=== PATIENT | female | born 1970 | race Caucasian/White ===

== ENCOUNTER → 2022-07-24 11:00 | Outpatient (CLI) | payer MEDICAID, SELFPAY ==
[2022-07-24 14:05] LABS: Alanine Aminotransferase 21 U/L (12-78); Albumin Level 4.4 g/dl (3.5-5.0); Albumin/Globulin Ratio 1.7 (1.1-1.8); Alkaline Phosphatase 100 U/L (38-126); Aspartate Amino Transferase 25 U/L (14-36); Bilirubin,Total 0.5 mg/dl (0.2-1.3); Blood Urea Nitrogen 18 mg/dl (7-17); Calcium 9.5 mg/dl (8.4-10.2); Carbon Dioxide 26 mmol/L (22.0-30.0); Chloride 107 mmol/L (98-107); Cholesterol 183 mg/dl (140-200); Estimated Glomerular Filt Rate 105 ml/min (>60); GFR (African American) 128 ML/MIN (>60); Globulin 2.6 g/dL (1.3-3.2); Glucose 108 mg/dl (74-100); Triglycerides 91 mg/dl (30-150); VLDL Cholesterol 18 mg/dL (0-40)
[2022-07-24 14:07] LABS: Anion Gap 11.4 mEq/L (5-15); Chol/HDL Ratio 2.7 (1-3.5); HDL Cholesterol 67 mg/dl (40-60); Potassium 4.4 mmoL/L (3.5-5.1); Sodium 140 mmol/L (136-145)
[2022-07-24 14:14] LABS: Basophils # 0.1 K/mm3 (0-0.2); Basophils % 0.8 % (0.1-2.0); Eosinophils # 0.1 K/mm3 (0.0-0.4); Eosinophils % 1.2 % (0.1-12.0); Hemoglobin 14.9 g/dL (12.2-16.2); Lymphocytes # 1.9 K/mm3 (0.7-4.5); Lymphocytes % 23.7 % (10-50); Mean Corpuscular HGB Conc 31.8 g/dL (31.8-35.4); Mean Corpuscular Volume 91.3 fl (81-99); Mean Platelet Volume 8.2 fl (7.4-10.4); Monocytes # 0.4 K/mm3 (0.1-1.0); Monocytes % 5.1 % (1.7-9.3); Neutrophils # 5.7 K/mm3 (1.8-7.8); Neutrophils % 69.3 % (37.0-80.0); Platelet Count 428 K/mm3 (142-424); Red Blood Count 5.14 M/mm3 (4.20-5.40); Red Cell Distribution Width 13.2 % (11.5-17.5); White Blood Count 8.2 K/mm3 (4.8-10.8)
[2022-07-24 14:23] LABS: Free T4 (Free Thyroxine) 1.11 ng/dl (0.78-2.19)
[2022-07-24 14:31] LABS: 25-OH Vitamin D, Total < 12.8 ng/mL (30-100)
[2022-07-24 14:36] LABS: Thyroid Stimulating Hormone 1.95 uIU/mL (0.465-4.68)
== END ==
PROVIDERS: PCP Emergency Medicine; Visit Provider Emergency Medicine
DX: I10 Essential (primary) hypertension (principal); E55.9 Vitamin D deficiency, unspecified
CPT/HCPCS: 80053; 80061; 82306; 84439; 84443; 85025

== ENCOUNTER → 2022-08-20 10:50 | Outpatient (CLI) | payer MEDICAID, SELFPAY ==
[2022-08-20 16:11] LABS: Barbiturates Screen,Urine Negative ng/ml (<200)
[2022-08-20 16:12] LABS: Benzodiazepines Screen,Urine Negative ng/ml (<200)
[2022-08-20 16:13] LABS: Cannabinoid Screen,Urine Negative ng/ml (<50)
[2022-08-20 16:15] LABS: Phencyclidine Screen,Urine Negative ng/ml (<25)
[2022-08-20 16:30] LABS: Methadone Screen,Urine Negative ng/ml (<300)
[2022-08-20 16:33] LABS: Cocaine Screen,Urine Negative ng/ml (<300)
[2022-08-20 16:34] LABS: Opiate Screen,Urine Positive ng/ml (<300)
[2022-08-22 18:47] LABS: Amphetamine/Metha Screen,Urine Negative ng/ml (<1000)
== END ==
PROVIDERS: PCP Emergency Medicine; Visit Provider Emergency Medicine
DX: Z79.899 Other long term (current) drug therapy (principal)
CPT/HCPCS: 80305

== ENCOUNTER → 2022-10-16 10:50 | Outpatient (CLI) | payer MEDICAID, SELFPAY ==
[2022-10-16 14:19] LABS: Amphetamine/Metha Screen,Urine Positive ng/ml (<1000); Barbiturates Screen,Urine Negative ng/ml (<200)
[2022-10-16 14:22] LABS: Benzodiazepines Screen,Urine Negative ng/ml (<200)
[2022-10-16 14:23] LABS: Cannabinoid Screen,Urine Negative ng/ml (<50); Cocaine Screen,Urine Negative ng/ml (<300)
[2022-10-16 14:24] LABS: Methadone Screen,Urine Negative ng/ml (<300); Opiate Screen,Urine Negative ng/ml (<300)
[2022-10-16 14:25] LABS: Phencyclidine Screen,Urine Negative ng/ml (<25)
== END ==
PROVIDERS: PCP Emergency Medicine; Visit Provider Emergency Medicine
DX: M54.12 Radiculopathy, cervical region (principal)
CPT/HCPCS: 80305

== ENCOUNTER → 2022-11-15 20:15 | Outpatient (CLI) | payer MEDICAID, SELFPAY ==
[2022-11-15 21:09] LABS: Amphetamine/Metha Screen,Urine Positive ng/ml (<1000)
[2022-11-15 21:11] LABS: Cannabinoid Screen,Urine Negative ng/ml (<50)
[2022-11-15 21:12] LABS: Barbiturates Screen,Urine Negative ng/ml (<200); Benzodiazepines Screen,Urine Negative ng/ml (<200)
[2022-11-15 21:13] LABS: Cocaine Screen,Urine Negative ng/ml (<300)
[2022-11-15 21:14] LABS: Methadone Screen,Urine Negative ng/ml (<300); Opiate Screen,Urine Negative ng/ml (<300)
[2022-11-15 21:16] LABS: Phencyclidine Screen,Urine Negative ng/ml (<25)
== END ==
PROVIDERS: PCP Family Medicine; Visit Provider Family Medicine
DX: Z79.899 Other long term (current) drug therapy (principal)
CPT/HCPCS: 80305

== ENCOUNTER → 2022-11-23 13:24 | Outpatient (CLI) | payer MEDICAID, SELFPAY ==
[2022-11-23 15:26] LABS: Amphetamine/Metha Screen,Urine Negative ng/ml (<1000); Barbiturates Screen,Urine Negative ng/ml (<200)
[2022-11-23 15:27] LABS: Benzodiazepines Screen,Urine Negative ng/ml (<200); Cannabinoid Screen,Urine Negative ng/ml (<50)
[2022-11-23 15:28] LABS: Cocaine Screen,Urine Negative ng/ml (<300)
[2022-11-23 15:29] LABS: Methadone Screen,Urine Negative ng/ml (<300); Opiate Screen,Urine Negative ng/ml (<300)
[2022-11-23 15:30] LABS: Phencyclidine Screen,Urine Negative ng/ml (<25)
== END ==
PROVIDERS: PCP Emergency Medicine; Visit Provider Emergency Medicine
DX: M54.12 Radiculopathy, cervical region (principal)
CPT/HCPCS: 80305

== ENCOUNTER → 2022-12-21 13:41 | Outpatient (CLI) | payer MEDICAID, SELFPAY ==
[2022-12-21 13:49] LABS: Benzodiazepines Screen,Urine Negative ng/ml (<200)
[2022-12-21 13:50] LABS: Amphetamine/Metha Screen,Urine Negative ng/ml (<1000)
[2022-12-21 13:51] LABS: Barbiturates Screen,Urine Negative ng/ml (<200); Cannabinoid Screen,Urine Negative ng/ml (<50)
[2022-12-21 13:52] LABS: Cocaine Screen,Urine Negative ng/ml (<300); Methadone Screen,Urine Negative ng/ml (<300)
[2022-12-21 13:53] LABS: Opiate Screen,Urine Negative ng/ml (<300)
[2022-12-21 13:54] LABS: Phencyclidine Screen,Urine Negative ng/ml (<25)
== END ==
PROVIDERS: PCP Emergency Medicine; Visit Provider Emergency Medicine
DX: M54.12 Radiculopathy, cervical region (principal)
CPT/HCPCS: 80305

== ENCOUNTER → 2023-02-18 23:10 | Outpatient (CLI) | payer MEDICAID, SELFPAY ==
[2023-02-18 20:04] LABS: Amphetamine/Metha Screen,Urine Negative ng/ml (<1000); Barbiturates Screen,Urine Negative ng/ml (<200); Benzodiazepines Screen,Urine Negative ng/ml (<200); Cocaine Screen,Urine Negative ng/ml (<300); Methadone Screen,Urine Negative ng/ml (<300); Opiate Screen,Urine Positive ng/ml (<300); Phencyclidine Screen,Urine Negative ng/ml (<25)
[2023-02-18 20:17] LABS: Cannabinoid Screen,Urine Negative ng/ml (<50)
== END ==
PROVIDERS: PCP Emergency Medicine; Visit Provider Emergency Medicine
DX: F41.9 Anxiety disorder, unspecified (principal)
CPT/HCPCS: 80305

== ENCOUNTER → 2023-03-05 07:37 | Outpatient (CLI) | payer MEDICAID, SELFPAY ==
--- NOTE | 2023-03-05 07:38 | US_ITS ---
FINAL REPORT CLINICAL HISTORY: abdominal pain COMPARISON: None FINDINGS: Sonographic images of the right upper quadrant were obtained. The pancreas is partially obscured. There is fatty infiltration of the liver. Multiple gallstones are present in the gallbladder. The gallbladder wall is slightly thickened at 4.8 mm. There is no evidence of biliary ductal dilatation.The common duct measures 6 mm, and no evidence of choledocholithiasis is seen. Limited images of the right kidney are unremarkable. IMPRESSION: Gallstones present in the gallbladder with slight gallbladder wall thickening and borderline biliary ductal dilatation. No evidence of choledocholithiasis is seen. Fatty infiltration of the liver. Reviewed, Interpreted and Dictated by Hayden Pabon MD Transcribed by Racquel Boston Authenticated and . [facility]
== END ==
PROVIDERS: PCP Emergency Medicine; Visit Provider Emergency Medicine
DX: R10.9 Unspecified abdominal pain (principal)
CPT/HCPCS: 76705

== ENCOUNTER → 2023-04-10 12:18 | Outpatient (CLI) | payer MEDICAID, SELFPAY | PROVIDERS: PCP Emergency Medicine; Visit Provider Specialist | DX: G47.33 Obstructive sleep apnea (adult) (pediatric) (principal) | CPT/HCPCS: G0399 ==

== ENCOUNTER → 2023-04-12 09:33 | Outpatient (CLI) | payer MEDICAID, SELFPAY | PROVIDERS: PCP Emergency Medicine; Visit Provider Specialist | DX: G93.40 Encephalopathy, unspecified (principal); R41.3 Other amnesia; R41.89 Other symptoms and signs involving cognitive functions and awareness | CPT/HCPCS: 95819 ==

== ENCOUNTER → 2023-04-18 10:54 | Outpatient (CLI) | payer MEDICAID, SELFPAY ==
--- NOTE | 2023-04-18 11:04 | ECG_ITS ---
APPROVED REPORT Exam: Resting ECG HR:82 bpm ECG Measurements Heart Rate 82 AXES NJ 121 P 51 QRSd 86 QRS 64 QT 356 T 38 QTc 394 Conclusion SINUS RHYTHM NORMAL ECG UNCONFIRMED REPORT Electronically signed by : Casey Acevedo MD 04/20/2023 08:01:58
[2023-04-18 11:57] LABS: Basophils % 0.6 % (0.1-2.0); Eosinophils # 0.1 K/mm3 (0.0-0.4); Hematocrit 46.1 % (37.0-47.0); Hemoglobin 14.4 g/dL (12.2-16.2); Lymphocytes # 1.7 K/mm3 (0.7-4.5); Lymphocytes % 36.8 % (10-50); Mean Corpuscular HGB Conc 31.3 g/dL (31.8-35.4); Mean Corpuscular Volume 92.6 fl (81-99); Mean Platelet Volume 7.9 fl (7.4-10.4); Monocytes # 0.2 K/mm3 (0.1-1.0); Monocytes % 5.3 % (1.7-9.3); Neutrophils # 2.5 K/mm3 (1.8-7.8); Neutrophils % 55.4 % (37.0-80.0); Platelet Count 212 K/mm3 (142-424); Red Blood Count 4.97 M/mm3 (4.20-5.40); Red Cell Distribution Width 13.1 % (11.5-17.5); White Blood Count 4.5 K/mm3 (4.8-10.8)
[2023-04-18 12:27] LABS: Alanine Aminotransferase 16 U/L (12-78); Albumin Level 3.9 g/dl (3.5-5.0); Albumin/Globulin Ratio 1.7 (1.1-1.8); Alkaline Phosphatase 69 U/L (38-126); Anion Gap 8.4 mEq/L (5-15); Aspartate Amino Transferase 20 U/L (14-36); Bilirubin,Total 0.3 mg/dl (0.2-1.3); Blood Urea Nitrogen 14 mg/dl (7-17); Calcium 9.1 mg/dl (8.4-10.2); Carbon Dioxide 28 mmol/L (22.0-30.0); Chloride 108 mmol/L (98-107); Estimated Glomerular Filt Rate 130 ml/min (>60); GFR (African American) 157 ML/MIN (>60); Globulin 2.3 g/dL (1.3-3.2); Glucose 92 mg/dl (74-100); Potassium 4.4 mmoL/L (3.5-5.1); Sodium 140 mmol/L (136-145); Total Protein,Serum 6.2 g/dl (6.3-8.2)
[2023-04-18 12:56] LABS: Urine Pregnancy, HCG Qual. Negative (Negative)
== END ==
PROVIDERS: PCP Emergency Medicine; Visit Provider Surgery
DX: R10.9 Unspecified abdominal pain (principal); Z01.818 Encounter for other preprocedural examination
CPT/HCPCS: 36415; 80053; 81025; 85025; 93005

== ENCOUNTER → 2023-04-22 10:50 | Outpatient (CLI) | payer MEDICAID, SELFPAY ==
[2023-04-22 12:26] LABS: Erythrocyte Sedimentation Rate 14 mm/hr (0-30)
[2023-04-22 12:53] LABS: Chloride 105 mmol/L (98-107); Potassium 4.5 mmoL/L (3.5-5.1); Sodium 137 mmol/L (136-145)
[2023-04-22 12:55] LABS: Alanine Aminotransferase 18 U/L (12-78); Aspartate Amino Transferase 20 U/L (14-36); Blood Urea Nitrogen 19 mg/dl (7-17); Estimated Glomerular Filt Rate 88 ml/min (>60); GFR (African American) 107 ML/MIN (>60)
[2023-04-22 12:56] LABS: Albumin Level 3.8 g/dl (3.5-5.0); Albumin/Globulin Ratio 1.7 (1.1-1.8); Alkaline Phosphatase 73 U/L (38-126); Anion Gap 7.5 mEq/L (5-15); Calcium 8.8 mg/dl (8.4-10.2); Carbon Dioxide 29 mmol/L (22.0-30.0); Globulin 2.3 g/dL (1.3-3.2); Glucose 91 mg/dl (74-100); Total Protein,Serum 6.1 g/dl (6.3-8.2)
[2023-04-22 12:57] LABS: Bilirubin,Total 0.1 mg/dl (0.2-1.3)
[2023-04-22 17:56] LABS: Vitamin B12 297 pg/mL (239-931)
[2023-04-22 18:02] LABS: Folate 9.94 ng/mL
[2023-04-23 10:13] LABS: Rapid Plasma Reagin Ab Titer Non Reactive titer (NonRea<1:1)
[2023-04-23 14:11] LABS: Anti-Centromere B Antibodies <0.2 AI (0.0-0.9); Anti-DNA (DS) Ab Qn <1 IU/mL (0-9); Anti-Jo-1 <0.2 AI (0.0-0.9); Antichromatin Antibodies <0.2 AI (0.0-0.9); Antiscleroderma-70 Antibodies 1.1 AI (0.0-0.9); RNP Antibodies <0.2 AI (0.0-0.9); Sjogren's Anti-SS-A <0.2 AI (0.0-0.9); Sjogren's Anti-SS-B <0.2 AI (0.0-0.9)
[2023-04-24 15:01] LABS: C-Reactive Protein 2.2 mg/L (0-4)
[2023-04-25 08:27] LABS: Anti-Centromere B Abs Charge YES; Anti-DNA (DS) Ab Charge YES; Anti-Jo-1 Charge YES; Antichromatin Abs Charge YES; Antinuclear Antibodies (ANA) POSITIVE; Antiscleroderma-70 Abs Charge YES; RNP Antibodies Charge YES; Sjogren's Anti-SS-A Ab Charge YES; Sjogren's Anti-SS-B Ab Charge YES; Smith Antibodies Charge YES
== END ==
PROVIDERS: PCP Emergency Medicine; Visit Provider Specialist
DX: G93.40 Encephalopathy, unspecified (principal); R41.3 Other amnesia; R41.89 Other symptoms and signs involving cognitive functions and awareness
CPT/HCPCS: 36415; 80053; 82607; 82746; 85651; 86038; 86140; 86225; 86235; 86593

== ENCOUNTER 2023-04-25 06:00 | Day surgery (SDC) | payer MEDICAID, SELFPAY ==
[2023-04-24 13:17] VITALS: BMI 33.2
[2023-04-25] VITALS (12 sets, daily range): BP systolic 104–150; BP diastolic 43–100; PULSE 89–103; RESP 15–18; TEMP 36.3–43; O2SAT 93–99
--- NOTE | 2023-04-25 08:28 | P.OP_ITS ---
Date of procedure: 04/25/23 Pre-op Diagnosis:: Chronic calculus cholecystitis Post-op Diagnosis:: Same Procedure performed:: Laparoscopic cholecystectomy Surgeon:: Anam Go MD AUTO DAMAGE TRAINEE:: Juanjo Oleary Anesthesia: DARIEL Estimated blood loss (mL): 15 Operative findings:: Fairly severe infundibular thickening Operative note:: After informed consent was obtained, the patient was taken to the operating room and placed in the supine position. General anesthesia was induced and the abdomen was prepped and draped in a sterile fashion. After infiltration with local anesthetic an infraumbilical incision was made. A Veress needle was placed in position. The abdomen was insufflated. A 5 mm optical trocar was placed in position. Under direct visualization, a 12 mm trocar was placed in the subxiphoid position and 2 additional 5 mm trocars were placed in the right upper quadrant. The gallbladder was elevated up and over the liver margin. The tissue around the cystic duct was carefully dissected. 3 clips were placed proximally and the duct was transected with harmonic jose. Harmonic jose were then utilized to dissect the gallbladder away from the liver margin with careful attention to the control of the cystic artery. The gallbladder was placed in a retrieval bag and removed through the subxiphoid trocar site. The right upper quadrant was thoroughly irrigated. No active bleeding or bile leak was noted. Fascia at the subxiphoid trocar site was reapproximated utilizing the NeoClose device. The remaining trocars were removed. All wounds were irrigated and skin was closed with 4-0 Monocryl in a mattress fashion to facilitate hemostasis. The patient's anesthetic agents were reversed and extubation was completed prior to transfer to recovery in stable condition. Condition: stable Disposition: PACU Specimens:: Gallbladder and contents Complications:: No immediate
--- NOTE | 2023-04-25 08:35 | EXP.ANES.CKL ---
[facility] Disclaimer: The information contained in this section may have been updated after the patient was seen, as this information can be updated by other users. Medical History Accessory carpal bone of both wrists Anxiety Hypertension Surgical History History of carpal tunnel release History of hernia repair Family History Other Cancer Social History Smoking Status: Current every day smoker alcohol intake: never substance use type: former substance user and marijuana current occupational status: unemployed Travel in the last 8 weeks: None household members: significant other housing: other marital status: [facility] Anesthesia Checklist Patient Identification Patient Identification: Arm Band Structural Data Admitted From: Home Planned Operative Procedure/s: Laparoscopic Cholecystectomy Consent for Planned Operative Procedure(s) Verified: Yes Verified Documents: Surgical Consent and History and Physical NPO Status Verified Time NPO: 00:00 Additional verifications Anesthesia Reactions: No Hx Blood Transfusions: No Blood Transfusion Reaction: No Airway Assessment Mallampati Score:: Class II C-Spine Mobility Assessed: Yes TMJ Mobility Assessed: Yes Dentition: Edentulous Neurological Assessment Level of Consciousness: Awake and Alert Anesthesia Plan Anesthesia Risk discussed: Yes Anesthesia Plan: Verified ASA Class: II Anesthesia Type: General
--- NOTE | 2023-04-25 08:36 | EXP.ANES.I ---
[facility] Anesthesia Record Part I Anesthesia Record I Intake, IV Amount: 1,200 Hydration: Adequate Estimated blood loss (mL): 10 Urine output (mL): 0 Blood Products used (#): none Blood Pressure: 148/91 SaO2: 95 Pulse Rate: 98 Airway Patency: Patent Respiratory Rate: 16 Temperature: 97.8 F Patient is:: Drowsy and Stable Stable to PACU at:: 08:30
--- NOTE | 2023-04-25 10:54 | EXP.ANES.II ---
[facility] Anesthesia Record Part II Anesthesia Record Part II Discharge Time: 09:00 Destination: Surgical Day Care (OP Surgery) PACU nurse assessment reviewed?: Yes Patient Condition:: Good Anesthesia Complications:: None Swallowing reflex intact?: Yes Airway Patency: Patent Cyanosis?: No Blood Pressure: 104/43 SaO2: 96 Respiratory Rate: 16 Pulse Rate: 89 Temperature: 97.8 F Mental Status: Alert & Oriented Pain level:: 5 Nausea and/or vomitting:: None Intake, IV Amount: 0 Hydration: Adequate
== END 2023-04-25 09:52 | disposition home or self-care (01) ==
PROVIDERS: PCP Emergency Medicine; Visit Provider Surgery
PROC: 0FT44ZZ Resection of Gallbladder, Percutaneous Endoscopic Approach (ICD-10-PCS; CPT 47562; principal; 2023-04-25 07:30)
DX: K80.10 Calculus of gallbladder with chronic cholecystitis without obstruction (principal)
CPT/HCPCS: 47562; 96374; J2405

== ENCOUNTER 2023-04-26 11:58 | Emergency (ER) | payer MEDICAID, SELFPAY ==
[2023-04-26] VITALS (7 sets, daily range): BP systolic 151–193; BP diastolic 85–159; PULSE 72–95; RESP 16–18; TEMP 36.5–36.7; O2SAT 95–100; BMI 34.4
--- NOTE | 2023-04-26 12:35 | CT_ITS ---
FINAL REPORT CLINICAL HISTORY: 1d post op lap/kulwant sudden R abd pain COMPARISON: None FINDINGS: CT OF THE ABDOMEN AND PELVIS WITH CONTRAST Axial CT images of the abdomen and pelvis were obtained after the administration of IV contrast. Coronal and sagittal reformatted images were also obtained and reviewed. This study was performed with techniques to keep radiation doses as low as reasonably achievable (ALARA). Individualized dose reduction techniques using automated exposure control or adjustment of mA and/or kV according to the patient's size were employed. Abdomen: Bibasilar atelectasis is present.. The heart is normal in size. The patient has undergone a recent cholecystectomy. There is mild biliary ductal dilatation noted, as well as a small amount of perihepatic free fluid. There is a small amount of fluid in the gallbladder fossa and adjacent to the medial aspect of the liver. There is a small focus of increased density in the distal common bile duct, and a small distal common bile duct stone cannot be excluded. The spleen is unremarkable. No adrenal mass is present. The pancreas has an unremarkable appearance. The kidneys are normal, without evidence of mass or hydronephrosis. The aorta is normal in caliber. There is no free fluid or adenopathy. No mass or abnormal fluid collection is seen. Pelvis: The appendix is not well-visualized. The urinary bladder is unremarkable. No inflammatory process is seen. There is no evidence of mass or adenopathy. There is no evidence of bowel obstruction. IMPRESSION: Patient is 1 day postop from a cholecystectomy. There is a small amount of fluid in the gallbladder fossa and adjacent to the medial liver that may simply represent postoperative change, or could represent a hematoma or biloma. There is a small amount of perihepatic free fluid noted. Mild biliary ductal dilatation with a questionable small stone in the distal common bile duct. Would recommend either ERCP or MRCP for further evaluation at this time. Reviewed, Interpreted and Dictated by Wilner Hernandez III, MD Transcribed by Racquel Boston Authenticated and [facility]
--- NOTE | 2023-04-26 12:37 | HMH.EDGENADL ---
Discharge Plan Disposition Chief Complaint: Abdominal Pain Prescriptions Prescriptions: No Action bupropion HCl 75 mg tablet 75 mg PO BID Qty: 60 2RF polyethylene glycol 3350 [Miralax] 17 gram/dose powder 17 g PO DAILY PRN (Reason: Constipation) cholecalciferol (vitamin D3) 1,250 mcg (50,000 unit) capsule 1,250 mcg PO WEEKLY Qty: 14 3RF lisinopril 5 mg tablet 5 mg PO DAILY Qty: 90 0RF clonazepam [Klonopin] 0.5 mg tablet 0.5 mg PO DAILY 21 Days Qty: 21 0RF oxycodone 10 mg tablet 10 mg PO QID oxycodone 5 mg tablet 5 mg PO Q6H PRN (Reason: post-op pain) Qty: 13 0RF Referrals Follow up/Referrals: Inocencio Hillman MD [Primary Care Provider] - See instructions Activity Restrictions/Add. Instructions Additional Instructions/Restrictions: No emergent medical condition was identified on your CAT scan there was some normal postoperative fluid collection but more concerning Gama there was possible mild biliary ductal dilatation but all your labs were normal and after discussing the case with our general surgeon we do not feel that an emergent ERCP or MRCP are needed however please keep a close eye on your symptoms if you develop any jaundice as discussed or worsening abdominal pain please return to the emergency department. The last please follow-up with your surgeon as previously instructed. Clinical Impressions Clinical Impression: Acute postoperative abdominal pain Instructions Patient Instructions: DI for Acute Abdominal Pain Discharge ED Provider: Gallo Retana General Adult HPI General Chief complaint: Abdominal Pain Stated complaint: surgery on [facility] 04/25 pain in adm Time Seen by Provider: 04/26/23 12:23 Mode of Arrival: Wheelchair Source of Information: Patient Limitations: No Limitations Description of Symptoms (Recalled from ER Triage Doc. by RN): pt presents with c/o abdominal pain. pt reports having gallbladder taken out yesterday. pain occurred approx 20-30 mins WINDOW GLASS CUTTER OFF. pt did take prescription pain medication given after surgery. History of Present Illness HPI narrative: Patient is a 52-year-old female 1 day status post laparoscopic cholecystectomy performed by Dr. Mack at [facility] presenting with sudden abdominal pain that was severe on the right side of her abdomen about 1 hour prior to arrival. She states that she had a very difficult time relaxing her abdomen and it was much more severe than the postoperative pain she was feeling. She states that since improved a little bit since that time. She denies any fever any shortness of breath any chest pain any abdominal distention or bloating. Related Data Home Medications Medication Instructions Recorded Confirmed polyethylene glycol 3350 17 17 g PO DAILY PRN Constipation 03/13/23 04/26/23 gram/dose oral powder (Miralax) oxycodone 10 mg tablet 10 mg PO QID Pain 04/25/23 04/26/23 Previous Rx's Medication Instructions Recorded cholecalciferol (vitamin D3) 1,250 1,250 mcg PO WEEKLY vitamin d 07/26/22 mcg (50,000 unit) capsule deficiency #14 caps bupropion HCl 75 mg tablet 75 mg PO BID #60 tabs 10/16/22 lisinopril 5 mg tablet 5 mg PO DAILY #90 tabs 04/04/23 clonazepam 0.5 mg tablet (Klonopin) 0.5 mg PO DAILY 3 weeks #21 tabs 04/23/23 oxycodone 5 mg tablet 5 mg PO Q6H PRN post-op pain #13 04/25/23 tabs Allergies Allergy/AdvReac Type Severity Reaction Status Date / Time No Known Allergies Allergy Verified 04/26/23 12:33 [facility] Disclaimer: The information contained in this section may have been updated after the patient was seen, as this information can be updated by other users. Medical History (Updated 04/26/23 @ 12:40 by Gallo Retana MD) Accessory carpal bone of both wrists Anxiety Hypertension Surgical History History of carpal tunnel release History of hernia repair Family History (Reviewed 04/05/23 @ 09:14 by Iva
[2023-04-26 12:44] LABS: Basophils % 0.4 % (0.1-2.0); Chloride 104 mmol/L (98-107); Eosinophils # 0.1 K/mm3 (0.0-0.4); Eosinophils % 1.8 % (0.1-12.0); Hematocrit 39.5 % (37.0-47.0); Hemoglobin 13.5 g/dL (12.2-16.2); Lymphocytes # 2.4 K/mm3 (0.7-4.5); Lymphocytes % 36.6 % (10-50); Mean Corpuscular HGB Conc 34.1 g/dL (31.8-35.4); Mean Corpuscular Hemoglobin 30.9 pg (27.0-31.2); Mean Corpuscular Volume 90.6 fl (81-99); Mean Platelet Volume 7.9 fl (7.4-10.4); Monocytes # 0.4 K/mm3 (0.1-1.0); Monocytes % 6.1 % (1.7-9.3); Neutrophils # 3.6 K/mm3 (1.8-7.8); Neutrophils % 55.1 % (37.0-80.0); Platelet Count 208 K/mm3 (142-424); Red Blood Count 4.36 M/mm3 (4.20-5.40); Red Cell Distribution Width 13.4 % (11.5-17.5); White Blood Count 6.4 K/mm3 (4.8-10.8)
[2023-04-26 12:45] LABS: Potassium 3.3 mmoL/L (3.5-5.1); Sodium 140 mmol/L (136-145)
[2023-04-26 12:47] LABS: Alanine Aminotransferase 58 U/L (12-78); Albumin Level 3.8 g/dl (3.5-5.0); Albumin/Globulin Ratio 1.5 (1.1-1.8); Alkaline Phosphatase 69 U/L (38-126); Anion Gap 10.3 mEq/L (5-15); Aspartate Amino Transferase 49 U/L (14-36); Bilirubin,Total 0.3 mg/dl (0.2-1.3); Blood Urea Nitrogen 15 mg/dl (7-17); Calcium 8.7 mg/dl (8.4-10.2); Carbon Dioxide 29 mmol/L (22.0-30.0); Creatinine Clearance Estimated 175 mL/min (50-200); Estimated Glomerular Filt Rate 105 ml/min (>60); GFR (African American) 128 ML/MIN (>60); Globulin 2.5 g/dL (1.3-3.2); Glucose 101 mg/dl (74-100); Total Protein,Serum 6.3 g/dl (6.3-8.2)
[2023-04-26 12:50] LABS: Lipase < 10 U/L (23-300)
--- NOTE | 2023-04-26 12:54 | PC.NURSE ---
Pt gone to RAD via wheelchair
--- NOTE | 2023-04-26 13:02 | PC.NURSE ---
Pt returned from RAD
--- NOTE | 2023-04-26 14:12 | PC.NURSE ---
Rounded on pt. Requested a drink. Advised we would get her something when her results were back. No other needs voiced.
--- NOTE | 2023-04-26 14:13 | PC.NURSE ---
Dr Huff paged
--- NOTE | 2023-04-26 14:51 | PC.NURSE ---
Dr Refugio tyler, his office advised he was in surgery.
--- NOTE | 2023-04-26 14:58 | PC.NURSE ---
Dr Retana speaking to Dr Huff
== END 2023-04-26 15:07 | disposition home or self-care (01) ==
PROVIDERS: Emergency Provider Student in an Organized Health Care Education/Training Program; PCP Emergency Medicine
DX: G89.18 Other acute postprocedural pain (principal); I10 Essential (primary) hypertension; F41.9 Anxiety disorder, unspecified; F17.210 Nicotine dependence, cigarettes, uncomplicated
CPT/HCPCS: 74177; 80053; 83690; 85025; 96361; 96374; 96375; 99284; J2405; Q9967

== ENCOUNTER 2023-05-07 15:33 | Outpatient (CLI) | payer MEDICAID, SELFPAY ==
[2023-05-07 15:45] VITALS: BP 149/90; PULSE 111; RESP 20; TEMP 36.6; O2SAT 98
[2023-05-07 16:02] VITALS: BP 144/88; PULSE 102; RESP 20; O2SAT 98
== END 2023-05-07 16:09 | disposition home or self-care (01) ==
LOC: INF 15:35
PROVIDERS: PCP Emergency Medicine; Visit Provider Surgery
DX: G89.18 Other acute postprocedural pain (principal)
CPT/HCPCS: 96372

== ENCOUNTER → 2023-05-15 13:29 | Outpatient (CLI) | payer MEDICAID, SELFPAY ==
[2023-05-15 20:45] LABS: Amphetamine/Metha Screen,Urine Negative ng/ml (<1000); Barbiturates Screen,Urine Negative ng/ml (<200)
[2023-05-15 20:46] LABS: Benzodiazepines Screen,Urine Negative ng/ml (<200)
[2023-05-15 20:47] LABS: Cannabinoid Screen,Urine Negative ng/ml (<50); Cocaine Screen,Urine Negative ng/ml (<300)
[2023-05-15 20:48] LABS: Methadone Screen,Urine Negative ng/ml (<300)
[2023-05-15 20:49] LABS: Opiate Screen,Urine Negative ng/ml (<300); Phencyclidine Screen,Urine Negative ng/ml (<25)
== END ==
PROVIDERS: PCP Emergency Medicine; Visit Provider Emergency Medicine
DX: Z79.899 Other long term (current) drug therapy (principal)
CPT/HCPCS: 80305

== ENCOUNTER → 2023-06-18 23:31 | Outpatient (CLI) | payer MEDICAID, SELFPAY ==
[2023-06-18 18:48] LABS: Basophils % 0.5 % (0.1-2.0); Eosinophils # 0.1 K/mm3 (0.0-0.4); Eosinophils % 1.7 % (0.1-12.0); Hematocrit 44.3 % (37.0-47.0); Hemoglobin 14.4 g/dL (12.2-16.2); Lymphocytes # 2.2 K/mm3 (0.7-4.5); Lymphocytes % 38.2 % (10-50); Mean Corpuscular HGB Conc 32.5 g/dL (31.8-35.4); Mean Corpuscular Hemoglobin 30.4 pg (27.0-31.2); Mean Corpuscular Volume 93.6 fl (81-99); Mean Platelet Volume 8.8 fl (7.4-10.4); Monocytes # 0.4 K/mm3 (0.1-1.0); Monocytes % 6.2 % (1.7-9.3); Neutrophils # 3.1 K/mm3 (1.8-7.8); Neutrophils % 53.4 % (37.0-80.0); Platelet Count 272 K/mm3 (142-424); Red Blood Count 4.73 M/mm3 (4.20-5.40); Red Cell Distribution Width 13.8 % (11.5-17.5); White Blood Count 5.8 K/mm3 (4.8-10.8)
[2023-06-18 19:49] LABS: Alanine Aminotransferase 37 U/L (12-78); Albumin Level 4.2 g/dl (3.5-5.0); Albumin/Globulin Ratio 1.7 (1.1-1.8); Alkaline Phosphatase 87 U/L (38-126); Anion Gap 11.4 mEq/L (5-15); Aspartate Amino Transferase 34 U/L (14-36); Bilirubin,Total 0.3 mg/dl (0.2-1.3); Blood Urea Nitrogen 18 mg/dl (7-17); Calcium 9.2 mg/dl (8.4-10.2); Carbon Dioxide 24 mmol/L (22.0-30.0); Chloride 107 mmol/L (98-107); Estimated Glomerular Filt Rate 105 ml/min (>60); GFR (African American) 128 ML/MIN (>60); Globulin 2.5 g/dL (1.3-3.2); Glucose 98 mg/dl (74-100); Potassium 4.4 mmoL/L (3.5-5.1); Sodium 138 mmol/L (136-145); Total Protein,Serum 6.7 g/dl (6.3-8.2)
[2023-06-18 20:06] LABS: Microalbumin/Creatinine Ratio 17.3
[2023-06-18 20:07] LABS: 25-OH Vitamin D, Total 33.5 ng/mL (30-100); Barbiturates Screen,Urine Negative ng/ml (<200)
[2023-06-18 20:08] LABS: Benzodiazepines Screen,Urine Negative ng/ml (<200)
[2023-06-18 20:09] LABS: Amphetamine/Metha Screen,Urine Negative ng/ml (<1000); Cocaine Screen,Urine Negative ng/ml (<300)
[2023-06-18 20:11] LABS: Cannabinoid Screen,Urine Negative ng/ml (<50); Creatinine,Urine Random 73 mg/dL (Not Estab.); Opiate Screen,Urine Negative ng/ml (<300)
[2023-06-18 20:12] LABS: Phencyclidine Screen,Urine Negative ng/ml (<25)
[2023-06-18 20:18] LABS: Methadone Screen,Urine Negative ng/ml (<300)
[2023-06-18 20:21] LABS: Thyroid Stimulating Hormone 2.41 uIU/mL (0.465-4.68)
== END ==
LOC: LAB.DROPOF 23:32
PROVIDERS: PCP Internal Medicine; Visit Provider Internal Medicine
DX: F41.9 Anxiety disorder, unspecified (principal); R53.83 Other fatigue; E66.9 Obesity, unspecified; Z68.34 Body mass index [BMI] 34.0-34.9, adult; Z79.899 Other long term (current) drug therapy
CPT/HCPCS: 80053; 80305; 82043; 82306; 82570; 84443; 85025

== ENCOUNTER → 2023-06-19 11:54 | Outpatient (CLI) | payer MEDICAID, SELFPAY ==
--- NOTE | 2023-06-19 12:01 | XR_ITS ---
FINAL REPORT CLINICAL HISTORY: pain with movement FINDINGS: Left shoulder Three views were obtained. There is no acute fracture or dislocation. There is mild AC joint degenerative change. No soft tissue abnormality is identified. IMPRESSION: Mild degenerative changes. Reviewed, Interpreted and Dictated by Wilner Hernandez III, MD Transcribed by Radha Hadley Authenticated and [facility]
--- NOTE | 2023-06-19 12:01 | XR_ITS ---
FINAL REPORT CLINICAL HISTORY: pain FINDINGS: THORACIC SPINE Two views demonstrate no acute fracture. There are moderate degenerative changes with osteophytes. There is no malalignment. IMPRESSION: Moderate degenerative changes. Reviewed, Interpreted and Dictated by Wilner Hernandez III, MD Transcribed by Radha Hadley Authenticated and [facility]
--- NOTE | 2023-06-19 12:01 | XR_ITS ---
FINAL REPORT CLINICAL HISTORY: radicular pain COMPARISON: 06/19/2023 FINDINGS: 3 views of the lumbar spine were obtained. There is no evidence of fracture or dislocation. The vertebral alignment is normal. There is moderate anterior osteophyte formation at L2-3 and L3-4. No paraspinous soft tissue abnormalities identified. IMPRESSION: No acute bony abnormality. Reviewed, Interpreted and Dictated by Hayden Pabon MD Transcribed by Racquel Boston Authenticated and [facility]
== END ==
PROVIDERS: PCP Internal Medicine; Visit Provider Internal Medicine
DX: M54.12 Radiculopathy, cervical region (principal); M25.512 Pain in left shoulder; M54.6 Pain in thoracic spine; M54.50 Low back pain, unspecified
CPT/HCPCS: 72070; 72100; 73030

== ENCOUNTER 2023-07-16 13:49 | Outpatient (CLI) | payer MEDICAID, SELFPAY ==
[2023-07-16 17:36] LABS: Amphetamine/Metha Screen,Urine Negative ng/ml (<1000); Barbiturates Screen,Urine Negative ng/ml (<200); Benzodiazepines Screen,Urine Negative ng/ml (<200); Cannabinoid Screen,Urine Negative ng/ml (<50); Cocaine Screen,Urine Negative ng/ml (<300); Methadone Screen,Urine Negative ng/ml (<300); Opiate Screen,Urine Negative ng/ml (<300); Phencyclidine Screen,Urine Negative ng/ml (<25)
[2023-07-23 06:04] LABS: Alprazolam Negative (Cutoff=100); Benzodiazepines Negative ng/mL (Cutoff=100); Clonazepam Negative (Cutoff=100); Flurazepam Negative (Cutoff=100); Lorazepam Negative (Cutoff=100); Midazolam Negative (Cutoff=100); Opiates Negative (Cutoff=100); Temazepam Negative (Cutoff=100); Triazolam Negative (Cutoff=100)
== END 2023-07-16 23:59 ==
LOC: LAB.DROPOF 13:50
PROVIDERS: PCP Internal Medicine; Visit Provider Internal Medicine
DX: Z79.899 Other long term (current) drug therapy (principal)
CPT/HCPCS: 80307; 80346; 80361; 80365; G0480

== ENCOUNTER 2023-07-18 10:29 | Outpatient (CLI) | payer MEDICAID, SELFPAY | END 2023-07-18 23:59 | LOC: LAB.DROPOF 07-26 10:30 | PROVIDERS: PCP Internal Medicine; Visit Provider Internal Medicine | DX: Z79.899 Other long term (current) drug therapy (principal) | CPT/HCPCS: 80346; 80361; 80365; G0480 ==

== ENCOUNTER 2023-08-06 13:01 | Outpatient (CLI) | payer MEDICAID, SELFPAY ==
--- NOTE | 2023-08-06 13:05 | XR_ITS ---
FINAL REPORT CLINICAL HISTORY: trigger finger in 3rd digit FINDINGS: 3 views of the right hand were obtained. There is a metallic ring on the first digit. There is no acute fracture or dislocation. The joint spaces are intact. There is no soft tissue abnormality. IMPRESSION: No acute process. Reviewed, Interpreted and Dictated by Hayden Pabon MD Transcribed by Fransisco Pierre Authenticated and . [facility]
== END 2023-08-06 23:59 ==
LOC: RAD 13:02
PROVIDERS: PCP Internal Medicine; Visit Provider Orthopaedic Surgery
DX: M79.641 Pain in right hand (principal)
CPT/HCPCS: 73130

== ENCOUNTER 2023-08-19 07:33 | Day surgery (SDC) | payer MEDICAID, SELFPAY ==
[2023-08-15 14:17] VITALS: BMI 31.3
--- NOTE | 2023-08-19 08:15 | XR_ITS ---
FINAL REPORT CLINICAL HISTORY: preop testing..smoker..soa COMPARISON: None FINDINGS: A single portable view of the chest was obtained. The heart size and pulmonary vascularity are within normal limits. The mediastinum is within normal limits. No acute pulmonary abnormality is identified. The bony thorax is intact. IMPRESSION: No active cardiopulmonary disease. Reviewed, Interpreted and Dictated by Wilner Hernandez III, MD Transcribed by Racquel Boston Authenticated and [facility]
[2023-08-19] MEDS: LACTATED RINGERS 1000ML 1,000 ML 25 ML IV (08:21)
[2023-08-19 08:26] VITALS: BP 144/105; PULSE 111; RESP 18; TEMP 36.6; O2SAT 94
--- NOTE | 2023-08-19 08:38 | ECG_ITS ---
APPROVED REPORT Exam: Resting ECG HR:100 bpm ECG Measurements Heart Rate 100 AXES NH 142 P 78 QRSd 86 QRS 60 QT 339 T 61 QTc 396 Conclusion SINUS TACHYCARDIA Atrial abnormality ABNORMAL RHYTHM ECG UNCONFIRMED REPORT Electronically signed by : Casey Acevedo MD 08/19/2023 17:16:15
[2023-08-19 08:43] LABS: Basophils # 0.1 K/mm3 (0-0.2); Basophils % 0.8 % (0.1-2.0); Eosinophils # 0.2 K/mm3 (0.0-0.4); Eosinophils % 2.3 % (0.1-12.0); Hematocrit 45.6 % (37.0-47.0); Hemoglobin 15.5 g/dL (12.2-16.2); Lymphocytes # 2.1 K/mm3 (0.7-4.5); Lymphocytes % 29.9 % (10-50); Mean Corpuscular Hemoglobin 30.2 pg (27.0-31.2); Mean Corpuscular Volume 88.9 fl (81-99); Mean Platelet Volume 7.5 fl (7.4-10.4); Monocytes # 0.4 K/mm3 (0.1-1.0); Monocytes % 5.3 % (1.7-9.3); Neutrophils # 4.2 K/mm3 (1.8-7.8); Neutrophils % 61.8 % (37.0-80.0); Platelet Count 236 K/mm3 (142-424); Red Blood Count 5.12 M/mm3 (4.20-5.40); Red Cell Distribution Width 13.6 % (11.5-17.5); White Blood Count 6.8 K/mm3 (4.8-10.8)
[2023-08-19 08:47] LABS: Chloride 110 mmol/L (98-107); Potassium 4.2 mmoL/L (3.5-5.1); Sodium 138 mmol/L (136-145)
[2023-08-19 08:50] LABS: Blood Urea Nitrogen 23 mg/dl (7-17); Creatinine Clearance Estimated 157 mL/min (50-200); Estimated Glomerular Filt Rate 105 ml/min (>60); GFR (African American) 127 ML/MIN (>60)
[2023-08-19 08:51] LABS: Anion Gap 7.2 mEq/L (5-15); Calcium 9.3 mg/dl (8.4-10.2); Carbon Dioxide 25 mmol/L (22.0-30.0); Glucose 99 mg/dl (74-100)
--- NOTE | 2023-08-19 09:01 | P.PNANES_ITS ---
[facility] Disclaimer: The information contained in this section may have been updated after the patient was seen, as this information can be updated by other users. Medical History Accessory carpal bone of both wrists Anxiety Hypertension Surgical History History of carpal tunnel release History of hernia repair History of laparoscopic cholecystectomy Family History Other Cancer Social History Smoking Status: Current every day smoker alcohol intake: never substance use type: former substance user and marijuana current occupational status: unemployed Travel in the last 8 weeks: None household members: significant other housing: other marital status: [facility] Anesthesia Checklist Patient Identification Patient Identification: Arm Band, Family and Verbal (Name & ) Structural Data Admitted From: Home Planned Operative Procedure/s: RT. Long finger trigger finger release Consent for Planned Operative Procedure(s) Verified: Yes Verified Documents: Surgical Consent and History and Physical NPO Status Verified Time NPO: 20:30 Chart Verification Results Verified: CBC, BMP, ECG and Chest Xray Additional verifications Patient : No Anesthesia Reactions: No Hx Blood Transfusions: No Blood Transfusion Reaction: No Cardiovascular Assessment Heart Sounds: S1 & S2 Pulse Rhythm: Irregular Airway Assessment Mallampati Score:: Class II C-Spine Mobility Assessed: Yes (FROM) TMJ Mobility Assessed: Yes Dentition: Dentures-good fit (Nothing loose per pt.) Neurological Assessment Level of Consciousness: Awake, Alert, Appropriate and Follows Commands Hx Seizures: No Numbness or tingling in extremities: No Anesthesia Plan Anesthesia Risk discussed: Yes Anesthesia Plan: Verified ASA Class: III Anesthesia Type: General (Discussed both MAC and GA w/LMA)
[2023-08-19 11:19] LABS: HCG Qualitative, Serum Negative (Negative)
[2023-08-19] MEDS: LIDOCAINE 1% W/EPI 1:100,000 20ML VIAL 20 ML (12:04)
[2023-08-19] MEDS: CEFAZOLIN SODIUM 2 GM in 0.9 % SODIUM CHLORIDE 100 ML IV (12:05)
[2023-08-19 12:30] VITALS: BP 125/63; PULSE 102; RESP 16; TEMP 36.4; O2SAT 98
--- NOTE | 2023-08-19 12:30 | EXP.OP.NOTE ---
Date of procedure: 08/19/23 Pre-op Diagnosis:: Right middle finger trigger finger Post-op Diagnosis:: Same Procedure performed:: Right middle finger A1 cristi (trigger finger release) Surgeon:: Glenn Guerin DO HEARING CONSULTANT:: Herman Whelan Anesthesia: MAC and local Estimated blood loss (mL): 0 Operative findings:: Triggering right middle finger Operative note:: Patient identified preoperatively. Right middle finger marked with yes my initials. Transported operative suite placed upon the operating bed right upper extremities and prepped and draped normal sterile fashion once prepped and draped final operative timeout performed to identify proper patient procedure and extremity. Everyone involved the case agreed. No counter indications to beginning. Did receive preoperative antibiotics. Local anesthesia was infiltrated around the A1 cristi of the middle finger with 1% lidocaine with epinephrine. Once adequate anesthesia obtained Esmarch was used to exsanguinate the extremity pneumatic tourniquet inflated to 250 mmHg. Skin knife was used incise through skin careful dissection was taken down to identify the A1 cristi Ragnell retractors were placed Early blade was used to incise the A1 cristi completed with scissors complete incision of the A1 cristi performed. Tendons were brought outside the skin to confirm no further catching or locking. There was a small cyst to this area to which was debrided. No further triggering was felt irrigation performed skin closed with nylon stitch sterile dressing placed patient waken anesthesia taken recovery stable condition. Condition: stable Disposition: PACU Complications:: None apparent
[2023-08-19 12:40] VITALS: BP 119/82; PULSE 98; RESP 17; O2SAT 96
[2023-08-19 12:50] VITALS: BP 151/85; PULSE 90; RESP 16; O2SAT 95
== END 2023-08-19 12:51 | disposition home or self-care (01) ==
PROVIDERS: PCP Internal Medicine; Visit Provider Orthopaedic Surgery
PROC: (CPT 26055; principal; 2023-08-19 10:30)
DX: M65.331 Trigger finger, right middle finger (principal)
CPT/HCPCS: 26055; 71045; 80048; 84703; 85025; 93005; 96374

== ENCOUNTER 2024-08-11 10:36 | Outpatient (CLI) | payer MEDICAID, SELFPAY ==
--- NOTE | 2024-08-11 10:36 | CT_ITS ---
FINAL REPORT TECHNIQUE: Axial images were obtained from the lung apex to the mid abdomen by computed tomography. This study was performed with techniques to keep radiation doses as low as reasonably achievable (ALARA). Individualized dose reduction techniques using automated exposure control or adjustment of mA and/or kV according to the patient's size were employed. CLINICAL HISTORY: lung cancer screening smoker 1/2 ppd 20 years FINDINGS: CHEST CT LOW DOSE CTDI vol (mGy): 2.7 DLP (mGy-cm): 95.1 There is no axillary adenopathy. There is no hilar or mediastinal adenopathy. The heart is normal in size. There is no pericardial or pleural effusion. Lung window images demonstrate no suspicious infiltrate or nodule. Limited images of the upper abdomen are unremarkable. IMPRESSION: Lung RADS category 1. Recommend 12 month follow-up low-dose chest CT. Reviewed, Interpreted and Dictated by Hayden Pabon MD Transcribed by Radha Hadley Authenticated and [facility]
== END 2024-08-11 23:59 | disposition home or self-care (01) ==
LOC: RAD 10:36
PROVIDERS: PCP Family Medicine; Visit Provider Family Medicine
DX: Z87.891 Personal history of nicotine dependence (principal)
CPT/HCPCS: 71271

== ENCOUNTER 2024-09-29 14:50 | Outpatient (CLI) | payer MEDICAID, SELFPAY ==
[2024-09-29 21:23] LABS: Albumin Level 4.5 g/dl (3.5-5.0); Chloride 105 mmol/L (98-107); Sodium 140 mmol/L (136-145)
[2024-09-29 21:24] LABS: Potassium 4.5 mmoL/L (3.5-5.1)
[2024-09-29 21:26] LABS: Alanine Aminotransferase 18 U/L (12-78); Albumin/Globulin Ratio 2.3 (1.1-1.8); Alkaline Phosphatase 77 U/L (38-126); Anion Gap 8.5 mEq/L (5-15); Aspartate Amino Transferase 22 U/L (14-36); Blood Urea Nitrogen 17 mg/dl (7-17); Carbon Dioxide 31 mmol/L (22.0-30.0); Cholesterol 177 mg/dl (140-200); Estimated Glomerular Filt Rate 75 ml/min (>60); GFR (African American) 91 ML/MIN (>60); Total Protein,Serum 6.5 g/dl (6.3-8.2); Triglycerides 113 mg/dl (30-150); VLDL Cholesterol 23 mg/dL (0-40)
[2024-09-29 21:27] LABS: Calcium 9.6 mg/dl (8.4-10.2); Chol/HDL Ratio 2.5 (1-3.5); Glucose 91 mg/dl (74-100); HDL Cholesterol 71 mg/dl (40-60)
[2024-09-29 21:37] LABS: Direct LDL Cholesterol 82.11 mg/dL (100-129)
[2024-09-29 21:51] LABS: Bilirubin,Total < 0.1 mg/dl (0.2-1.3)
== END 2024-09-29 23:59 | disposition home or self-care (01) ==
LOC: LAB.DROPOF 09-30 09:35
PROVIDERS: PCP Family Medicine; Visit Provider Family Medicine
DX: I10 Essential (primary) hypertension (principal)
CPT/HCPCS: 80053; 80061

== ENCOUNTER 2024-10-15 10:42 | Outpatient (CLI) | payer MEDICAID, SELFPAY ==
--- NOTE | 2024-10-15 11:00 | MM_ITS ---
PROCEDURE INFORMATION: Exam: MG Bilateral Screening 3D Mammography Exam date and time: 10/15/2024 10:55 AM Age: 54 years old Clinical indication: Screening examination TECHNIQUE: Imaging protocol: Bilateral Screening tomosynthesis and 2D mammography including computer-aided detection (CAD) when performed. COMPARISON: No relevant prior studies available. FINDINGS: MAMMOGRAPHY: Breast composition: There are scattered areas of fibroglandular density. Mass: None. Architectural distortion: None. Calcifications: No suspicious calcifications. Asymmetric density: None. Skin thickening: None. Axillary adenopathy: None. IMPRESSION: No mammographic evidence of malignancy. Annual screening is recommended unless otherwise clinically indicated. ASSESSMENT: BI-RADS Category 1: Negative.
== END 2024-10-15 23:59 | disposition home or self-care (01) ==
LOC: RAD 10:42
PROVIDERS: PCP Family Medicine; Visit Provider Family Medicine
DX: Z12.31 Encounter for screening mammogram for malignant neoplasm of breast (principal)
CPT/HCPCS: 77063; 77067